=== PATIENT | male | born 1950 | race Caucasian/White ===

== ENCOUNTER 2016-08-20 20:32 | Emergency (ER) | payer OTHER ==
[~2016-08-20] VITALS: Ht 188 cm; Wt 120.5 kg
[~2016-08-20 20:32] MED LIST: ASPI81TA40 PO; HCTZ; LOSARTAN
[2016-08-20 20:44] VITALS: BP 185/96; PULSE 54; RESP 20; O2SAT 98
--- NOTE | 2016-08-20 22:03 | DRSVH ---
PROCEDURE: X-RAY RIGHT KNEE, THREE VIEWS ([id number]) INDICATIONS: PAIN TECHNIQUE: 3 views of the knee were acquired. COMPARISON: None. FINDINGS: Bones: Postsurgical changes are demonstrated status post medial unicompartmental arthroplasty. No f ractures or dislocations. No suspicious periprosthetic lucencies. Soft tissues: There is a small joint effusion. No suspicious soft tissue calcifications. IMPRESSION: 1. Small joint effusion. 2. No fracture or definite evidence of hardware failure. Dictated by: Pavel Peters M.D. on 08/20/2016 at 22:00 Approved by: Pavel Peters M.D. on 08/20/2016 at 22:01
--- NOTE | 2016-08-20 22:25 | ED.REPORT ---
HPI-Extremity Problem Lower Date of Service Aug 20, 2016 ED Provider: Philippe Worley MD 66-year-old male with recent partial bilateral knee replacement presents today with pain in the right knee. He states that he was walking pushing a wheelchair when his knee "gave out". Since that time he states that he has had pain and difficulty walking. Sitting he has no pain unless the joint is palpated. But walking causes increased pain. He states that more he walks on the joint the better it feels. He has not taken anything for pain. He states that he feels like he could get an appointment fairly easily with the orthopedist but wanted to come to the emergency room today to make sure that there were no acute changes to the knee that needed to be dealt with immediately. Nursing Notes Stated Complaint: RIGHT KNEE PAIN Chief Complaint: General Complaint Nursing Notes Reviewed: Yes Allergies: Coded Allergies: No Known Allergies (Unverified Allergy, Unknown, 08/20/16) Scheduled ([Losartan]) 100 MG DAILY ([Hctz]) 12.5 MG DAILY Aspirin-Expunged Drug, Do Not Renew! (Aspirin-Expunged Drug, Do Not Renew!) 81 Mg Tab.chew 81 MG PO DAILY General Time Seen by MD: 22:09 Chief Complaint Knee injury right Hx Obtained From: Patient Arrived By: Walk-in Onset Occurred: 5 - 8 hours ago Severity: Current: No pain currently Severity: Maximum: Pain level 8 out of 10 Associated with: Reports: "Pop" felt or heard, Swelling (lower leg) Exacerbated by: Range of motion, Movement Relieved by: Immobilization Risk-Extremity Prob Lower Well's Criteria for DVT Well's DVT Score: 0 pts (low risk 5%) Past Medical History Past Medical History Bilateral partial knee replacement Review of Systems Complete sys rev & neg: except as marked. Physical Exam Initial Vital Signs Vital Signs (First) Date Time Temp Pulse Resp B/P Pulse Ox O2 Delivery O2 Flow Rate FiO2 08/20/16 20:44 36.8 54 20 185/96 98 Room Air Initial VS: Reviewed, Vital signs abnormal General/Constitutional: Well-developed, Well-nourished Head / Eyes: Atraumatic, Normocephalic, PERRL ENT: Mucous membranes moist, Conjunctiva normal, No scleral icterus Neck: Supple, Non-tender, Full range of motion Upper Extremities: Vascular intact, Neuro intact Skin: Warm, Dry, No cyanosis Neurologic: Alert, Oriented, Nonfocal Psychiatric: Mood/affect normal, Behavior normal, Normal thought content Right Thigh: Positive: Tenderness present... (Mild over the medial aspect of the thigh) Right Knee: Positive: Medial collat lig tender, ROM painful, Swelling present... (Mild), Tenderness present... (mild tenderness over the medial aspect of the knee), Warmth present, Negative: Anterior drawer test pos, Deformity present, Ecchymosis present, Ganga's test positive, Lateral collat lig tender, Neuro deficit present, Open fracture present, Patella dislocated, Patella tender, Pulse popliteal absent, Pulse popliteal decreased, Pulses distal absent, Pulses distal decreased Right Leg / Calf: Positive: Swelling present... (Mild), Tenderness present... ( Mild over the medial aspect of the leg) Interpretation & Diagnostics X-Ray Interpretation Xray Interpretation: No bony fracture present Possible joint effusions visible on lateral film X-Ray Ordered: Knee right Interpretation / Wet Read by: Interpret - ED physician Re-Eval/Medical Decision Med Decision/Clinical Course X-ray shows no acute findings, patient placed in right knee splint. He states that this helps his pain significantly upon ambulation. Counseled Regarding: Diagnosis, Lab results, Need for follow-up, When/why to return to ED Discharge & Departure Impression: Primary Impression: Right knee pain Chronicity: acute Qualified Code: M25.561 - Pain in right knee Disposition: Home Discharge Condition All VS Reviewed: Yes Condition: Stable Additional Instructions: You presented to the ER with pain in the right knee which began today. On X-Ray there is no visible cause for the pain. Your pain is likely muscular, ligamentous, or soft tissue related and cannot be visualized using xray. Please wear the stabilizing splint provided in the office today to decrease swelling until the point that you are able to follow up with your orthopedist. Referrals: Renu Toro MD (PCP) Attending Statement The patient was seen and examined together with Dr. Austin and I agree with the history, exam and plan as outlined in the note above. Philippe Worley MD Aug 20, 2016 22:25 Dat Austin DO Aug 20, 2016 22:27
[2016-08-20 23:02] VITALS: BP 148/88; PULSE 79; RESP 16; O2SAT 97
== END 2016-08-20 23:03 | disposition home or self-care (01) ==
LOC: SED 20:32
DX: M25.561 Pain in right knee (principal); X50.9XXA Other and unspecified overexertion or strenuous movements or postures, initial encounter; Y93.01 Activity, walking, marching and hiking; Y99.8 Other external cause status; Y92.9 Unspecified place or not applicable; I10 Essential (primary) hypertension; Z96.653 Presence of artificial knee joint, bilateral; Z79.82 Long term (current) use of aspirin